=== PATIENT | male | born 1940 | race African-American/Black ===

== ENCOUNTER 2020-03-13 20:49 | Inpatient (IN) | payer OTHER ==
[~2020-03-13] VITALS: Ht 182.9 cm; Wt 88.2 kg
[2020-03-13] MEDS ORDERED: SODIUM CHLORIDE 0.9% 1,000 ML IV ONE (23:05)
[2020-03-13] MEDS ORDERED: SODIUM CHLORIDE 0.9% 1000ML BAG (SEPSIS BOLUS) IV ONE (23:15)
[2020-03-14 01:23] LABS: CHLORIDE 98 mEq/L (98-107)
[2020-03-14 01:26] LABS: HEMATOCRIT. 24.5 % (42.0-52.0); HEMOGLOBIN. 8.3 g/dL (14.0-18.0); MEAN CORPUSCULAR HEMOGLOBIN 37.9 pg (28.0-32.0); MEAN CORPUSCULAR VOLUME 111.4 fL (80.0-94.0); MEAN PLATELET VOLUME 8.3 fl (7.4-10.4); PLATELET 162 x1000/uL (130-400); RED CELL DISTRIBUTION WIDTH 16.4 % (11.6-14.6)
[2020-03-14 01:27] LABS: ETHANOL BLOOD < 10 mg/dL
[2020-03-14 01:28] LABS: INR 1.4; PROTHROMBIN TIME 14.5 sec (9.6-11.0)
[2020-03-14] MEDS ORDERED: VANCOMYCIN 1 G PREMIX 200 ML IV SCH ×2 (01:45→09:00)
[2020-03-14] MEDS ORDERED: SODIUM CHLORIDE 0.9% 1000ML BAG (SEPSIS BOLUS) IV ONE (01:45)
[2020-03-14] MEDS ORDERED: AZTREONAM 2 GM in DEXT 5% WATER 100 ML IV SCH (02:00)
[2020-03-14 02:07] LABS: CLARITY URINE CLOUDY (CLEAR); COLOR URINE DK YELLOW (YELLOW); KETONES URINE NEGATIVE (NEGATIVE); LEUKOCYTE ESTERASE URINE 1+ (NEGATIVE); NITRITE URINE NEGATIVE (NEGATIVE); OCCULT BLOOD URINE NEGATIVE (NEGATIVE); PROTEIN URINE 2+ (NEGATIVE)
[2020-03-14 02:15] LABS: PLATELET ESTIMATE NORMAL
[2020-03-14 02:28] LABS: *AMPHETAMINES SCREEN URINE NEGATIVE (NEGATIVE); *BARBITURATES SCREEN URINE NEGATIVE (NEGATIVE); *BENZODIAZEPINES SCREEN URINE NEGATIVE (NEGATIVE); *COCAINE SCREEN URINE NEGATIVE (NEGATIVE)
[2020-03-14 02:29] LABS: CANNABINOID URINE SCREEN NEGATIVE (NEGATIVE); METHADONE URINE SCREEN NEGATIVE (NEGATIVE); OPIATES URINE SCREEN NEGATIVE (NEGATIVE); PHENCYCLIDINE URINE SCREEN NEGATIVE (NEGATIVE)
[2020-03-14] MEDS ORDERED: ACETAMINOPHEN 325MG TABLET PO PRN (02:45)
[2020-03-14] MEDS ORDERED: ONDANSETRON HCL 4MG/2ML INJ IV PRN (02:45)
[2020-03-14] MEDS ORDERED: CLONIDINE 0.1MG TABLET PO PRN (02:45)
[2020-03-14] MEDS ORDERED: SODIUM CHLORIDE 0.9% 1,000 ML IV SCH (04:00)
[2020-03-14 09:50] VITALS: BP 151/81
[2020-03-14 10:00] VITALS: BP 151/81
[2020-03-14] MEDS: KCL 10MEQ/50ML PREMIX 50 ML IV SCH ×4 (11:22→16:23)
[2020-03-14] MEDS ORDERED: POTA-9 MT (11:29)
[2020-03-14 12:00] VITALS: BP 153/73
[2020-03-14] MEDS ORDERED: SIMV5TAB58 MT (12:42)
[2020-03-14] MEDS ORDERED: HYDR-4133 MT (12:42)
[2020-03-14] MEDS ORDERED: OMEP10CA5 MT (12:42)
[2020-03-14] MEDS ORDERED: LOSA25TA26 MT (12:42)
[2020-03-14] MEDS ORDERED: GLIP5TAB12 MT (12:42)
[2020-03-14] MEDS ORDERED: DEXTROSE 50% WATER 50ML SYRINGE IV PRN (12:45)
[2020-03-14] MEDS: HEPARIN 5000 UNITS/ML VIAL SUBCUT SCH ×2 (12:52→22:02)
[2020-03-14] MEDS ORDERED: POTASSIUM CHLORIDE 20MEQ TABLET SR PO SCH (13:00)
[2020-03-14] MEDS ORDERED: LEVOFLOXACIN 500MG PREMIX 100 ML IV SCH (13:00)
[2020-03-14] MEDS: LOSARTAN POTASSIUM 25 MG TABLET PO SCH (14:04)
[2020-03-14] MEDS: HYDRALAZINE HCL 10MG TABLET PO SCH ×2 (14:05→22:03)
[2020-03-14 16:00] VITALS: BP 155/86
[2020-03-14] MEDS ORDERED: FOLIC ACID 1 MG, THIAMINE HCL 100 MG, MVI, ADULT NO.1 10 ML in DEXTROSE 5% WATER 1,000 ML IV ONE ×4 (16:00)
[2020-03-14] MEDS: INSULIN LISPRO 100 UNITS/ML SUBCUT SCH ×3 (17:15→22:04)
[2020-03-14] MEDS: BLOOD SUGAR DIAGNOSTIC STRIP TEST SCH ×2 (17:27→22:03)
[2020-03-14 18:04] LABS: CHLORIDE 102 mEq/L (98-107)
[2020-03-14 18:11] LABS: HDL CHOLESTEROL 12 mg/dL (40-59); LDL CHOLESTEROL 187 mg/dL (5-100)
[2020-03-14 18:23] LABS: HEMATOCRIT. 22.5 % (42.0-52.0); HEMOGLOBIN. 7.6 g/dL (14.0-18.0); MEAN CORPUSCULAR HEMOGLOBIN 36.7 pg (28.0-32.0); MEAN CORPUSCULAR VOLUME 109.6 fL (80.0-94.0); MEAN PLATELET VOLUME 7.9 fl (7.4-10.4); PLATELET 139 x1000/uL (130-400); RED BLOOD CELL COUNT 2.06 mill/uL (4.7-6.1); RED CELL DISTRIBUTION WIDTH 15.7 % (11.6-14.6)
[2020-03-14 19:01] LABS: PLATELET ESTIMATE NORMAL
[2020-03-14 20:00] VITALS: BP 148/81
[2020-03-14] MEDS ORDERED: MAGNESIUM 2 G PREMIX 50 ML IV NR (20:00)
[2020-03-14] MEDS ORDERED: ATORVASTATIN CALCIUM 20MG TABLET PO SCH (21:00)
[2020-03-14] MEDS ORDERED: ZOLPIDEM TARTRATE 5MG TABLET PO PRN (21:45)
[2020-03-15] VITALS: BP 143/77
[2020-03-15] MEDS: VANCOMYCIN 1 G PREMIX 200 ML IV SCH ×2 (00:36→08:50)
[2020-03-15 04:00] VITALS: BP 151/89
[2020-03-15] MEDS: HYDRALAZINE HCL 10MG TABLET PO SCH (06:25)
[2020-03-15] MEDS: BLOOD SUGAR DIAGNOSTIC STRIP TEST SCH ×2 (06:36→12:24)
[2020-03-15] MEDS: INSULIN LISPRO 100 UNITS/ML SUBCUT SCH ×2 (06:36→12:31)
[2020-03-15 06:46] LABS: HEMATOCRIT. 25.1 % (42.0-52.0); HEMOGLOBIN. 8.5 g/dL (14.0-18.0); MEAN CORPUSCULAR HEMOGLOBIN 37.9 pg (28.0-32.0); MEAN CORPUSCULAR VOLUME 111.8 fL (80.0-94.0); MEAN PLATELET VOLUME 8.1 fl (7.4-10.4); PLATELET 150 x1000/uL (130-400); RED BLOOD CELL COUNT 2.25 mill/uL (4.7-6.1); RED CELL DISTRIBUTION WIDTH 15.8 % (11.6-14.6)
[2020-03-15 06:54] LABS: CHLORIDE 101 mEq/L (98-107)
[2020-03-15 07:06] LABS: TOTAL IRON BINDING CAPACITY 178 ug/dL (250-450)
[2020-03-15 07:09] LABS: T4 FREE 1.49 ng/dL (0.76-1.46)
[2020-03-15 07:40] LABS: VITAMIN B12 SERUM 946 pg/mL (211-911)
[2020-03-15 08:00] VITALS: BP 154/76
[2020-03-15 08:08] LABS: FOLIC ACID (FOLATE) SERUM 2.3 ng/mL (>5.38)
[2020-03-15] MEDS: LOSARTAN POTASSIUM 25 MG TABLET PO SCH (08:50)
[2020-03-15] MEDS: HEPARIN 5000 UNITS/ML VIAL SUBCUT SCH (08:53)
[2020-03-15] MEDS ORDERED: FAMOTIDINE 20MG TABLET PO SCH (09:00)
[2020-03-15] MEDS ORDERED: LEVOFLOXACIN 500MG PREMIX 100 ML IV SCH (09:00)
[2020-03-15] MEDS ORDERED: METOPROLOL TARTRATE 25MG TABLET PO SCH (11:15)
[2020-03-15 12:00] VITALS: BP 136/74
[2020-03-15] MEDS ORDERED: MAGNESIUM 2 G PREMIX 50 ML IV ONE (12:30)
[2020-03-15 12:34] VITALS: BP 136/74
[2020-03-15 13:40] LABS: PLATELET ESTIMATE NORMAL
[2020-03-16] MEDS ORDERED: INSULIN GLARGINE UD 100 UNITS/ML SYR SUBCUT SCH (10:00)
== END 2020-03-15 13:10 | disposition short-term general hospital (02) | DRG 871 ==
LOC: ER 20:49 → 5WST 03-14 02:35 → EDBEDREQDT 03-14 03:25 → EDBEDREQTM 03-14 03:25 → EDBEDREQ 03-14 03:25 → EDBEDREQSVC 03-14 03:25 → ENRESERV 03-14 08:01
PROVIDERS: ADMIT Internal Medicine; ATTEND Internal Medicine
DX: A41.9 Sepsis, unspecified organism (principal); G93.41 Metabolic encephalopathy; E87.1 Hypo-osmolality and hyponatremia; E87.2 Acidosis; N39.0 Urinary tract infection, site not specified; D53.9 Nutritional anemia, unspecified; E05.90 Thyrotoxicosis, unspecified without thyrotoxic crisis or storm; E11.65 Type 2 diabetes mellitus with hyperglycemia; E78.5 Hyperlipidemia, unspecified; E83.42 Hypomagnesemia; E87.6 Hypokalemia; F10.10 Alcohol abuse, uncomplicated; I11.9 Hypertensive heart disease without heart failure; I45.10 Unspecified right bundle-branch block; R62.7 Adult failure to thrive; K76.0 Fatty (change of) liver, not elsewhere classified; Z79.01 Long term (current) use of anticoagulants; Z79.84 Long term (current) use of oral hypoglycemic drugs; Z79.899 Other long term (current) drug therapy; Z88.0 Allergy status to penicillin; K70.10 Alcoholic hepatitis without ascites; K76.89 Other specified diseases of liver; R56.9 Unspecified convulsions; R94.5 Abnormal results of liver function studies
CPT/HCPCS: 36415; 71045; 74176; 76705; 80048; 80053; 80061; 80076; 80202; 80305; 80320; 81003; 82607; 82728; 82746; 82962; 83036; 83540; 83550; 83605; 83735; 84145; 84439; 84443; 84484; 85025; 85044; 85379; 86850; 86900; 92610; 93005; 93306; 93880; 96365; 99291; J1644; J1815; J1956; J3370; J3411; J3475; J3480; J3490; J7030; J7060; J7070; G0480

== ENCOUNTER 2021-04-10 21:03 | Emergency (ER) | payer OTHER ==
[~2021-04-10] VITALS: Ht 170.2 cm; Wt 61.0 kg
[~2021-04-10 21:03] MED LIST: HYDR-4133 MT; OMEP10CA5 MT; SIMV5TAB58 MT
[2021-04-10] MEDS ORDERED: SODIUM CHLORIDE 0.9% 1,000 ML IV ONE (22:00)
[2021-04-11 00:07] LABS: HEMATOCRIT. 33.2 % (42.0-52.0); HEMOGLOBIN. 10.7 g/dL (14.0-18.0); MEAN CORPUSCULAR HEMOGLOBIN 35.7 pg (28.0-32.0); MEAN CORPUSCULAR VOLUME 110.6 fL (80.0-94.0); MEAN PLATELET VOLUME 10.3 fl (7.4-10.4); PLATELET 86 x1000/uL (130-400); RED CELL DISTRIBUTION WIDTH 15.5 % (11.6-14.6)
[2021-04-11 00:19] LABS: CHLORIDE 111 mEq/L (98-107)
[2021-04-11 00:25] LABS: BETA HYDROXYBUTYRATE 0.1 mMol/L (0.0-0.3)
[2021-04-11] MEDS ORDERED: SODIUM CHLORIDE 0.9% 1,000 ML IV ONE (00:45)
[2021-04-11 01:23] LABS: CLARITY URINE CLEAR (CLEAR); COLOR URINE YELLOW (YELLOW); KETONES URINE NEGATIVE (NEGATIVE); LEUKOCYTE ESTERASE URINE NEGATIVE (NEGATIVE); NITRITE URINE NEGATIVE (NEGATIVE); OCCULT BLOOD URINE TRACE (NEGATIVE); PROTEIN URINE 1+ (NEGATIVE); SPECIFIC GRAVITY URINE 1.024 (1.005-1.030); UROBILINOGEN URINE 0.2 E.U./dL (0.2-1.0)
[2021-04-11 02:06] LABS: PLATELET ESTIMATE DECREASED
[2021-04-11 07:30] VITALS: BP 153/75
== END 2021-04-10 22:07 ==
LOC: ER 21:03 → CANBEDREQ 04-11 06:51
DX: E11.65 Type 2 diabetes mellitus with hyperglycemia (principal); E86.0 Dehydration; Z88.0 Allergy status to penicillin
CPT/HCPCS: 36415; 70450; 71045; 80053; 82010; 85025; 93005; 96360; 96361; 99291; J7030

== ENCOUNTER 2021-08-28 09:52 | Emergency (ER) | payer OTHER ==
[~2021-08-28] VITALS: Ht 188 cm; Wt 100.0 kg
[2021-08-28 10:49] LABS: BASOPHILS % 1.1 % (0.0-2.0); EOSINOPHILS % 1.4 % (0.0-5.0); HEMATOCRIT. 28.9 % (42.0-52.0); HEMOGLOBIN. 9.7 g/dL (14.0-18.0); LYMPHOCYTES % 14.9 % (20.0-50.0); MEAN CORPUSCULAR HEMOGLOBIN 30.5 pg (28.0-32.0); MEAN PLATELET VOLUME 9.2 fl (7.4-10.4); NEUTROPHILS % 71.6 % (40.0-76.0); PLATELET 98 x1000/uL (130-400); RED BLOOD CELL COUNT 3.17 mill/uL (4.7-6.1)
[2021-08-28 10:54] LABS: CHLORIDE 118 mEq/L (98-107)
[2021-08-28 11:02] LABS: ETHANOL BLOOD < 10 mg/dL
[2021-08-28 11:57] LABS: CLARITY URINE CLEAR (CLEAR); COLOR URINE YELLOW (YELLOW); KETONES URINE NEGATIVE (NEGATIVE); LEUKOCYTE ESTERASE URINE NEGATIVE (NEGATIVE); NITRITE URINE POSITIVE (NEGATIVE); OCCULT BLOOD URINE NEGATIVE (NEGATIVE); PROTEIN URINE 2+ (NEGATIVE); UROBILINOGEN URINE 0.2 E.U./dL (0.2-1.0)
[2021-08-28] MEDS ORDERED: LEVOFLOXACIN 750MG PREMIX 150 ML IV ONE (12:15)
[2021-08-28] MEDS ORDERED: SODIUM CHLORIDE 0.9% 500 ML IV ONE (12:30)
[2021-08-28 12:40] LABS: *AMPHETAMINES SCREEN URINE NEGATIVE (NEGATIVE); *BARBITURATES SCREEN URINE NEGATIVE (NEGATIVE); *BENZODIAZEPINES SCREEN URINE NEGATIVE (NEGATIVE); *COCAINE SCREEN URINE NEGATIVE (NEGATIVE); CANNABINOID URINE SCREEN NEGATIVE (NEGATIVE); METHADONE URINE SCREEN NEGATIVE (NEGATIVE); OPIATES URINE SCREEN NEGATIVE (NEGATIVE); PHENCYCLIDINE URINE SCREEN NEGATIVE (NEGATIVE)
[2021-08-28] MEDS ORDERED: ONDANSETRON HCL 4MG/2ML INJ IV ONE (14:00)
[2021-08-28] MEDS ORDERED: MORPHINE SULFATE 2 MG/ML CPJ (NOT FOR IM USE) IV ONE (14:00)
[2021-08-28 14:35] VITALS: BP 158/75
== END 2021-08-28 14:45 | disposition short-term general hospital (02) ==
LOC: ER 09:52
DX: J18.9 Pneumonia, unspecified organism (principal); E11.9 Type 2 diabetes mellitus without complications; E78.00 Pure hypercholesterolemia, unspecified; I10 Essential (primary) hypertension; R51.9 Headache, unspecified; Z20.822 Contact with and (suspected) exposure to COVID-19; Z88.0 Allergy status to penicillin; Z98.890 Other specified postprocedural states; Z86.73 Personal history of transient ischemic attack (TIA), and cerebral infarction without residual deficits
CPT/HCPCS: 36415; 70450; 71045; 80053; 80305; 80320; 81003; 82962; 83605; 84484; 85025; 87040; 87426; 93005; 96365; 96366; 96375; 99285; J1956; J2270; J2405; J7040; G0480